=== PATIENT | female | born 1970 | race Two or more races ===

== ENCOUNTER 2022-01-01 09:45 | Outpatient (CLI) | payer OTHER | END 2022-01-01 23:59 | disposition home or self-care (01) | LOC: LAB 09:45 | PROVIDERS: ATTEND Specialist | DX: Z01.812 Encounter for preprocedural laboratory examination (principal); Z20.822 Contact with and (suspected) exposure to COVID-19 | CPT/HCPCS: U0003; C9803 ==

== ENCOUNTER 2022-01-08 07:36 | Day surgery (SDC) | payer OTHER ==
[2022-01-08] MEDS ORDERED: BUPIVACAINE 0.5 % PF 150 MG/30 ML VIAL ONE ×2 (08:32→08:59)
[2022-01-08] MEDS ORDERED: EPINEPHRINE (1:1000) 1 MG/ML AMPUL ONE (08:32)
[2022-01-08] MEDS ORDERED: MIDAZOLAM HCL 2 MG/2ML VIAL ONE (08:59)
[2022-01-08] MEDS ORDERED: HYDROMORPHONE INJ 2 MG/ML DISP.SYRIN ONE ×2 (08:59→11:20)
[2022-01-08] MEDS ORDERED: ROCURONIUM BROMIDE 50 MG/5 ML ONE (08:59)
[2022-01-08] MEDS ORDERED: BUPIVACAINE 0.25% 75 MG/30 ML VIAL ONE ×2 (10:47→10:49)
[2022-01-08] MEDS ORDERED: methylPREDNISolone ACETATE 80 MG/ML VIAL ONE (10:53)
[2022-01-08] MEDS ORDERED: HYDROCODONE/APAP 5/325MG TABLET ONE (12:39)
[2022-01-08] MEDS ORDERED: ANESTHESIA TRAY IN PYXIS 1 EA TRAY MC ONE (13:26)
[2022-01-08] MEDS ORDERED: HYDROCODONE/APAP 5/325MG TABLET PO PRN ×2 (14:00)
== END 2022-01-08 15:00 | disposition home or self-care (01) ==
LOC: DS 07:36
PROVIDERS: ATTEND Specialist
DX: E66.01 Morbid (severe) obesity due to excess calories (principal); I10 Essential (primary) hypertension; E11.9 Type 2 diabetes mellitus without complications; Z98.890 Other specified postprocedural states; Z79.899 Other long term (current) drug therapy
CPT/HCPCS: 29827; 82962; 29824; 29826; J0690; J3490 ×5; J1040; J1100; J2704; J0171; J1170 ×2; J0330; J1885; J2405; J7030; J2250; A4217